=== PATIENT | female | born 1990 | race Caucasian/White ===

== ENCOUNTER 2023-05-25 11:59 | Inpatient (IN) | payer BC, SELFPAY ==
[2023-05-25] VITALS (31 sets, daily range): BP systolic 107–220; BP diastolic 74–131; PULSE 80–102; RESP 11–33; TEMP 36.5–37.2; O2SAT 95–100
--- NOTE | ~2023-05-25 | XR_ITS ---
XR chest 1V portable DATE: 05/25/2023 12:35 INDICATION: Right hand numbness. Hypertension. TECHNIQUE: PA chest COMPARISON: None FINDINGS: Transverse cardiothoracic ratio measures approximately 16/30, suggesting borderline or mild cardiomegaly. No pulmonary infiltrate or consolidation, pleural effusion or pulmonary vascular congestion or pneumo thorax. Mild aortic unfolding. Included skeletal structures are unremarkable. IMPRESSION: Borderline or mild cardiomegaly Reviewed, dictated and finalized at location L. [employer]
--- NOTE | ~2023-05-25 | CT_ITS ---
EXAMINATION: CT brain wo con DATE: 05/25/2023 12:29 INDICATION: Right hand numbness, tingling. Headaches. Hypertension. TECHNIQUE: Computed tomography (CT) of the head was performed without intravenous contrast. The mA wa s adjusted according to patient size. Iterative reconstruction technique was employed. Exam dose: 60 5.33 mGy-cm total exam DLP. COMPARISON: None FINDINGS: No intracranial mass lesion or hemorrhage or cerebrovascular accident. No midline shift or mass effect. Normal ventricular size. Normal reina-white matter differentiation. No subdural or epidural hematoma. No fracture or bone destruction of the cranial vault. The mastoid air cells and included paranasal si nuses are normally developed and aerated. IMPRESSION: Negative examination Reviewed, dictated and finalized at [facility]. Reviewed, dictated and finalized at location [facility]. [employer] IMPRESSION: Negative examination
--- NOTE | 2023-05-25 12:13 | ECG_ITS ---
Measurements Intervals [place] Rate: 92 P: 43 CT: 147 QRS: 46 QRSD: 94 T: 89 QT: 349 QTc: 432 Interpretive Statements SINUS RHYTHM NONSPECIFIC ST & T-WAVE ABNORMALITY ABNORMAL ECG NO PREVIOUS ECG AVAILABLE FOR COMPARISON Electronically Signed On 05-25-2023 14:00:43 DISPLAY CARD WRITER by Gallo Cornejo M.D.
[2023-05-25 12:15] LABS: Glucose Point of Care 92 mg/dl (65-105)
--- NOTE | 2023-05-25 14:17 | ED.GENADULT ---
HPI - General Adult General Chief complaint: Neuro Symptoms/Deficit Stated complaint: Rt hand numbness and tingling Time Seen by Provider: 05/25/23 13:18 History of Present Illness HPI narrative: Patient is a 33-year-old female who presents to the emergency department this afternoon due to an elevated blood pressure. Patient states that within the last week she noticed that her blood pressure has been, with her systolic sitting in the 200s. Patient has never been formally diagnosed with hypertension and what prompted her to track her blood pressure last week is that her right/arm was tingling and she has been having headaches a week. Patient was referred to our emergency department regarding her elevated blood pressure and has set up an appointment with a primary care physician which is scheduled in the near future. She is currently denying any headaches or focal weaknesses, and denies any numbness or tingling currently. The remainder of the history of present illness and review of systems negative unless stated otherwise in the HPI. There are no other modifying, alleviating, or precipitating factors at this time Related Data Allergies Allergy/AdvReac Type Severity Reaction Status Date / Time No Known Allergies Allergy Verified 05/25/23 14:43 Review of Systems Review of Systems: All systems are reviewed and are negative unless stated otherwise in the HPI. PMFSH Comments Admits to iron deficiency anemia, denies any significant surgical history, is significant family history, denies any tobacco use, alcohol abuse or illicit drug use. Exam Narrative: General: Alert, awake, afebrile, in no acute distress. HEENT: PERRL, no rhinorrhea, no post nasal drip, oropharynx clear. Neck: Trachea midline, no JVD, no lymphadenopathy. Cardiovascular: Regular rate and rhythm, no murmurs, rubs or gallops, no peripheral edema. Respiratory: Clear to auscultation bilaterally, no tachypnea, no wheezing, no rhonchi, no rubs, no respiratory distress. Abdomen: Soft, nontender, nondistended, no rebound, no guarding, no peritoneal signs. Musculoskeletal: No joint swelling or deformity, normal muscle tone. Skin: No rashes or petechia, no signs of infection. Psychiatric: Alert and oriented, normal behavior and judgment for situation. Neurological: Alert and oriented to person, place, and time. Follows all commands. No focal deficits, speech is clear and fluent. Course Vital Signs Vital signs: Vital Signs Temperature 97.7 F 05/25/23 12:07 Pulse Rate 102 H 05/25/23 12:07 Respiratory Rate 20 05/25/23 12:07 Blood Pressure 220/131 H 05/25/23 12:07 Pulse Oximetry 100 05/25/23 12:07 Oxygen Delivery Room Air 05/25/23 12:07 Temperature 97.7 F 05/25/23 12:07 Pulse Rate 87 05/25/23 15:02 Respiratory Rate 19 05/25/23 15:02 Blood Pressure 206/111 H 05/25/23 15:02 Pulse Oximetry 100 05/25/23 15:02 Oxygen Delivery Room Air 05/25/23 12:07 Medical Decision Making MDM Narrative Medical decision making narrative: The patient was evaluated by myself in the emergency department. History is obtained from patient who is an independent historian and physical exam was performed. External medical records were reviewed at this time. IV was established and pertinent tests were ordered. Patient was administered 20 mg of IV labetalol with no improvement of her blood pressure. At this time 40 mg of IV labetalol was administered, also, no improvement of her blood pressure. At this time, patient was placed on a Cardene drip for her hypertensive emergency. EKG was obtained which revealed sinus rhythm rate of 92 beats per minute. No ST changes, T wave inversions or evidence of acute ischemia. EKG was independently interpreted by me and is currently pending official cardiology read. Laboratory results obtained revealing hemoglobin of 7.1, otherwise unremarkable. Patient states that she does have a history of iron deficiency ane
[2023-05-25 14:25] LABS: Basophils Percent Auto 0.8 % (0.2-1.2); Eosinophils Absolute Auto 0.3 K/mm3 (0-0.3); Eosinophils Percent Auto 4.8 % (0-4.4); Hematocrit 27.2 % (37.0-47.0); Hemoglobin 7.1 g/dL (12.0-15.0); Immature Granulocyte Absolute 0.05 K/mm3 (0.00-0.031); Immature Platelet Fraction Pct 7.4 % (0.9-11.2); Lymphocytes Absolute Auto 1.79 K/mm3 (0.9-3.2); Lymphocytes Percent Auto 34.2 % (18.3-44.2); Mean Corpuscular HGB Conc 26.1 g/dl (32-36); Mean Corpuscular Hemoglobin 16.4 pg (26-34); Monocytes Absolute Auto 0.4 K/mm3 (0.1-0.6); Monocytes Percent Auto 6.7 % (2.6-8.5); Neutrophils Absolute Auto 2.8 K/mm3 (1.3-6.7); Neutrophils Percent Auto 52.5 % (45.5-73.1); Platelet Count Result 285 k/mm3 (150-375); Red Blood Count 4.32 M/mm3 (4.2-5.4); Red Cell Distribution Width 21.1 % (11.5-14.5); White Blood Count 5.2 K/mm3 (4.5-10.0)
[2023-05-25 14:32] LABS: Alanine Aminotransferase 19 U/L (6-35); Albumin Level 4.1 g/dL (3.5-5.1); Alkaline Phosphatase 64 U/L (38-126); Anion Gap 7 mmol/L (8-16); Aspartate Amino Transferase 27 U/L (14-36); Blood Urea Nitrogen 8 mg/dL (7-17); Calcium 8.5 mg/dL (8.4-10.2); Carbon Dioxide 28 mmol/L (22-30); Chloride 103 mmol/L (98-107); Estimated CRCL calculation 119 ml/min; Estimated Glomerular Filt Rate > 60; Glucose 90 mg/dL (65-110); Potassium 3.7 mmol/L (3.4-5.0); Sodium 138 mmol/L (137-145)
[2023-05-25 14:38] LABS: INR 1.1; Partial Thromboplastin Time 27.1 SECONDS (22.3-36.8); Prothrombin Time 14.7 Seconds (11.1-14.7)
[2023-05-25 14:39] LABS: Platelet Estimate Adequate (Adequate)
[2023-05-25 14:40] LABS: Anisocytosis 2+ (NORMAL); Hypochromasia 1+ (NORMAL); Microcytosis 2+ (NORMAL)
[2023-05-25 14:41] LABS: Target Cells 1+ (NORMAL)
[2023-05-25] MEDS: LABETALOL HCL INJ 100 MG/20 ML VIAL 20 MG IV PUSH (14:43)
[2023-05-25 14:44] LABS: Troponin I 0.019 ng/mL (0.000-0.034)
[2023-05-25 14:45] LABS: Schistocytes None Seen (NORMAL); Stomatocytes 1+ (NORMAL)
[2023-05-25] MEDS: LABETALOL HCL INJ 100 MG/20 ML VIAL 40 MG IV PUSH (14:51)
[2023-05-25] MEDS: niCARdipine 20 MG/200 ML 20 MG/200 ML BAG 50 MG IV CONT ×2 (15:55→20:50)
--- NOTE | 2023-05-25 17:45 | ADMGEN ---
This patient, Caryl Werner, was admitted to Intensive Care Unit-3. Patient/family oriented to hospital policies and general routines including ID bracelet, bed and alarms, visiting hours, pain management, procedures, bathroom and other care routines, personal items, smoking policy, room service/diet, and visiting hours. Information on how to activate the Rapid Response Team has been discussed. Patient/Family are encouraged to report perceived risks to care and to ask questions if they do not understand what they are told or what they should do.
[2023-05-25] MEDS: niCARdipine 20 MG/200 ML 20 MG/200 ML BAG 75 MG IV CONT ×2 (18:19→19:15)
[2023-05-25 18:32] LABS: Iron 56 ug/dL (37-170)
[2023-05-25 18:43] LABS: Percent Iron Saturation 11 % (20-50)
[2023-05-25 19:04] LABS: Ferritin 5.49 ng/mL (6.24-137)
[2023-05-25 19:41] LABS: Folic Acid 5.7 ng/mL (2.76->20)
--- NOTE | 2023-05-25 19:49 | PC.NURSE ---
Spoke with patient upon arrival. Pt stated she didn't want to stay overnight because she has Stuff to do. I encouraged patient to stay and informed her of the risks that comes with severe hypertension including, stroke, heart attack, and kidney disease, as well as the need to be stared on a home regiment so this event does not reccur. She agrees to stay but does not want to stay longer than tomorrow.
--- NOTE | 2023-05-25 20:33 | PM.IMHP ---
H&P: HPI History of Present Illness Date/Time: 05/25/23 16:30 Chief Complaint: High blood pressure. Narrative: This is a pleasant 33-year-old female with iron deficiency anemia attributed to heavy periods from uterine fibroids and hypertension (not currently on medication) who presented to the emergency department via private vehicle for evaluation of high blood pressure. The patient provides the following history. She reports daily, frontal headaches for little over 1 week which is unusual for her. Due to the headache she started to monitor her blood pressure as an outpatient and reports that it has been persistently over 200 systolic. She has occasional tingling in the right arm and hand as well. On occasion her vision appears blurry but that is not longstanding. She has been more short of breath with activity over a month or more reports they nagging, dry cough. She denies vertigo, facial droop, difficulty speaking and swallowing, focal weakness, chest pain, and edema. No fever, chills, sweats, cold, or flu symptoms. In the ED: Her blood pressure was as high as 220/131. A total of labetalol 60 mg was given without much benefit and she was started on nicardipine drip and has been admitted to the ICU in this setting. Labs were significant for a microcytic anemia with a hemoglobin of 7.1, hematocrit 27.2, MCV 63. She was previously prescribed iron but fell out of favor of taking that. She was previously on triamterene for her blood pressure but has not taken that for quite some time. Review of Systems Review of Systems: Twelve systems were reviewed. No fever, chills, or sweats. No recent cold or flu symptoms. No exertional chest pain. Occasional snoring and paroxysmal nocturnal dyspnea. Intermittent lower extremity edema which seems to improve by morning time. No calf pain. Appetite has been okay. Except as documented, all other systems were reviewed and are negative. [facility] Past Medical History Medical History (Updated 05/25/23 @ 20:55 by Joselin Anthony PA-C) Hypertension Iron deficiency anemia Uterine fibroid Surgical History Surgical History (Updated 05/25/23 @ 20:48 by Joselin Anthony PA-C) No history of previous surgery Family History Family History Grandparent Breast cancer Grandparent Colon cancer Sibling Cerebrovascular accident Grandparent Hypertension Mother Fibroids Social History Social History (Updated 05/25/23 @ 20:48 by Joselin Anthony PA-C) Social History: Surrogate medical decision maker: Osmin Garcia, father. Code status: Full code. Smoking status: Never smoker Alcohol intake: former Substance use: never Do You Feel Safe in your Home?: Yes Lack of Transportation: No Lack of Food: Never True Current Housing: I Have Housing Concerned About Future Housing: No Difficulty Paying Gas/Electric Bills: No Difficulty Paying for Meds: No Currently Unemployed: No Education: Decline to Answer Difficulty w/ Childcare or Family Care: Decline to Answer Additional living arrangements comments: Lives in [place]. 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 Spiritual care concerns: No Meds Home Medications and Allergies Home Medications Medication Instructions Recorded Confirmed Type No Home Medications 05/25/23 05/25/23 History Allergies Allergy/AdvReac Type Severity Reaction Status Date / Time No Known Allergies Allergy Verified 05/25/23 14:43 Vital Signs Vital Signs - 24 hr 05/25/23 12:07 05/25/23 13:16 05/25/23 13:27 Temperature 97.7 F Pulse Rate 102 H 84 82 Respiratory Rate 20 22 H 26 H Blood Pressure 220/131 H Pulse Oximetry 100 99 Oxygen Delivery Room Air 05/25/23 13:30 05/25/23 13:31 05/25/23 13:45 Temperature Pulse Rate 84 86 91 Respiratory Rate 21 H 25 H 25 H Blood Pressure 208/98 H Pulse Oximetry 98 98 Oxygen Delivery
--- NOTE | 2023-05-25 22:12 | PC.NURSE ---
pt called and said she was wanting to leave [facility]. I further reinforced the risks she was taking as mentioned in previous note. She states that she understands all the risks and will be seeing her primary next week to address all the issues. Spoke with PA who says she will come talk to patient. Awaiting arrival.
--- NOTE | 2023-05-25 23:01 | PC.NURSE ---
Pt stated she was ready to leave [facility] and provider was taking too long. Signed papers, removed IV and escorted out of unit
--- NOTE | 2023-05-26 14:37 | P.PNCROSS_ITS ---
Event Note Event Note Event Note: 05/25/2023 22:15 I received a call from the patient's nurse indicating that she wished to leave against medical advice. Nurse discussed the risks of leaving with the patient (stroke, heart attack, permanent debility, and even ) and he was not able to convince her to stay. I asked the patient to wait for me to come to speak with her however was with a sick patient at the time and I was not able to get there within a reasonable time frame for the patient and she left against medical advice without speaking with me. She told the nurse that she had follow- up with her primary care provider next week. She was given reasons to return. During the time I spent with the patient earlier in the day, there were no identifiable factors to suggest that she had altered decision making capacity and she had normal reasoning abilities.
== END 2023-05-25 23:00 | disposition left against medical advice (07) | DRG 305 ==
LOC: ANHED 15:21 → ANHICU 17:12
PROVIDERS: Admitting Provider Internal Medicine; Emergency Provider Emergency Medicine; Visit Provider Physician Assistant
DX: I16.0 Hypertensive urgency (principal); Z68.42 Body mass index [BMI] 45.0-49.9, adult; D50.9 Iron deficiency anemia, unspecified; I10 Essential (primary) hypertension; D25.9 Leiomyoma of uterus, unspecified; E66.01 Morbid (severe) obesity due to excess calories; R20.2 Paresthesia of skin; R29.818 Other symptoms and signs involving the nervous system
CPT/HCPCS: 36415; 70450; 71045; 80053; 81025; 82607; 82728; 82746; 82948; 83540; 83550; 84484; 85025; 85055; 85610; 85730; 93005; 96374; 96375; 99285; J2404

== ENCOUNTER 2023-11-09 01:36 | Emergency (ER) | payer OTHER, SELFPAY ==
--- NOTE | ~2023-11-09 | XR_ITS ---
Portable chest x-ray Comparison: 05/25/2023 Clinical History: Dyspnea Findings: Lungs are clear, without focal consolidation or pleural effusion. Cardiomediastinal silho uette is stable. Bones and soft tissues are unremarkable. Impression: Clear lungs. Stable cardiomegaly. Reviewed, dictated and finalized at location . Impression: Clear lungs. Stable cardiomegaly.
[2023-11-09 01:39] VITALS: BP 230/100; PULSE 116; RESP 28; TEMP 36.8; O2SAT 100
[2023-11-09 02:27] VITALS: PULSE 106; RESP 27; O2SAT 93
[2023-11-09 03:48] VITALS: BP 201/117; PULSE 110; RESP 28; O2SAT 98
--- NOTE | 2023-11-09 03:51 | ECG_ITS ---
Test Date: 2023-11-09 04:17:55 Measurements Intervals [place] Rate: 106 P: 49 DE: 164 QRS: 12 QRSD: 93 T: 118 QT: 341 QTc: 453 Interpretive Statements SINUS TACHYCARDIA NONSPECIFIC T-WAVE ABNORMALITY BORDERLINEL ECG No previous ECG available for comparison Electronically Signed On 11-10-2023 10:50:47 CDT by Mumtaz Thomas M.D.
--- NOTE | 2023-11-09 03:54 | ED.GENADULT ---
HPI - General Adult General Chief complaint: Unspecified Stated complaint: vomiting Time Seen by Provider: 11/09/23 02:24 Source: patient Limitations: no limitations History of Present Illness HPI narrative: Patient is a 33-year-old female presents to the emergency department complaining of inhalation of bleach. Patient notes that she was cleaning and spilled household bleach when she went to go clean up the spill bleach she inhaled a lot of it and subsequently developed nausea and vomiting and this was at 9:40 p.m.. Patient notes she has had multiple episodes of nonbloody nonbilious emesis that has now turned to retching. Patient notes around 11:00 p.m. she started having difficulty breathing but has been constant and unchanged since. Patient denies history of asthma. Patient states she was in her normal state health preceding illness. Patient denies chest pain, abdominal pain, rash, sore throat. Related Data Allergies Allergy/AdvReac Type Severity Reaction Status Date / Time No Known Allergies Allergy Verified 05/25/23 14:43 Review of Systems Review of Systems: A 10 system review of systems was completed on the patient and is negative except for what is stated in the HPI. Nursing and ancillary documentation was reviewed. [facility] Past Medical History Medical History (Updated 11/09/23 @ 06:44 by Song Mcneill DO) Hypertension Iron deficiency anemia Uterine fibroid Surgical History Surgical History (Updated 05/25/23 @ 20:48 by Joselin Anthony PA-C) No history of previous surgery Family History Family History Grandparent Breast cancer Grandparent Colon cancer Sibling Cerebrovascular accident Grandparent Hypertension Mother Fibroids Social History Social History (Updated 05/25/23 @ 20:48 by Joselin Anthony PA-C) Social History: Surrogate medical decision maker: Osmin Garcia, father. Code status: Full code. Smoking status: Never smoker Alcohol intake: former Substance use: never Do You Feel Safe in your Home?: Yes Lack of Transportation: No Lack of Food: Never True Current Housing: I Have Housing Concerned About Future Housing: No Difficulty Paying Gas/Electric Bills: No Difficulty Paying for Meds: No Currently Unemployed: No Education: Decline to Answer Difficulty w/ Childcare or Family Care: Decline to Answer Additional living arrangements comments: Lives in [place]. 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 Spiritual care concerns: No Comments At time of signature, I have reviewed and agree with nursing past medical, surgical, social and family history unless otherwise noted. Please see the nursing chart for further information. There is no relevant family history pertinent to the presenting complaint. Exam Narrative: CONST: No acute distress. Well nourished. Obese. HENMT: Head is normocephalic and atraumatic. Moist mucous membranes. No posterior oropharynx erythema. No oral lesions. No angioedema. EYES: No scleral icterus. No conjunctival injection or pallor. PERRL. NECK: No meningeal signs. No crepitus. RESP: Speaking in phrases. Tachypnea. Mildly prolonged expiratory phase with scant end-expiratory wheeze. Diminished breath sounds diffusely. CARDIO: Tachycardic rate. Regular rhythm. 2+ DP and radial pulses bilaterally. GI: Nondistended. No tenderness to palpation. Soft. : No CVA tenderness to palpation. SKIN: No rashes or lesions noted on exposed skin. NEURO: Oriented x3. Moves all extremities. EXTREM/MSK/BACK: No pedal edema. PSYCH: Normal affect. Course Vital Signs Vital signs: Vital Signs Temperature 98.2 F 11/09/23 01:39 Pulse Rate 116 H 11/09/23 01:39 Respiratory Rate 28 H 11/09/23 01:39 Blood Pressure 230/100 H 11/09/23 01:39 Pulse Oximetry 100 11/09/23 01:39 Oxygen Delivery Room Air 11/09/23 01:39 Temp
[2023-11-09 04:05] VITALS: PULSE 107; RESP 28
[2023-11-09] MEDS: IPRATROPIUM 0.5 MG/ALBUTEROL SULFATE 2.5 MG AMPUL.NEB 3 ML INHALATION ×3 (04:08)
--- NOTE | 2023-11-09 04:30 | PC.NURSE ---
ON 11/08/2020 AT 0429 [facility] CONTACTED BY THIS RN, SPOKE WITH FLORECITA AND THIS CALL WAS PASSED OVER TO EDP; DR. LANDEROS.
[2023-11-09] MEDS: ONDANSETRON INJ 4 MG/2 ML VIAL IV PUSH (04:34)
[2023-11-09] MEDS: methylPREDNISolone SOD SUCC 125 MG VIAL IV PUSH (04:35)
[2023-11-09 04:40] LABS: Basophils Absolute Auto 0.1 K/mm3 (0.0-0.1); Basophils Percent Auto 0.6 % (0.2-1.2); Eosinophils Absolute Auto 0.1 K/mm3 (0-0.3); Eosinophils Percent Auto 1.4 % (0-4.4); Hematocrit 31.6 % (37.0-47.0); Hemoglobin 8.6 g/dL (12.0-15.0); Immature Granulocyte Absolute 0.08 K/mm3 (0.00-0.031); Immature Granulocyte Percent A 0.8 % (0-0.5); Immature Platelet Fraction Pct 6.8 % (0.9-11.2); Lymphocytes Absolute Auto 1.36 K/mm3 (0.9-3.2); Lymphocytes Percent Auto 14.2 % (18.3-44.2); Mean Corpuscular HGB Conc 27.2 g/dl (32-36); Mean Corpuscular Hemoglobin 17.3 pg (26-34); Mean Corpuscular Volume 63.7 fl (80-100); Monocytes Absolute Auto 0.5 K/mm3 (0.1-0.6); Monocytes Percent Auto 5.5 % (2.6-8.5); Neutrophils Absolute Auto 7.4 K/mm3 (1.3-6.7); Neutrophils Percent Auto 77.5 % (45.5-73.1); Nucleated Red Blood Cells Perc 0.3 % (0.0-0.2); Platelet Count Result 305 k/mm3 (150-375); Red Blood Count 4.96 M/mm3 (4.2-5.4); Red Cell Distribution Width 23.1 % (11.5-14.5); White Blood Count 9.6 K/mm3 (4.5-10.0)
--- NOTE | 2023-11-09 04:41 | PC.NURSE ---
This RN spoke with Parvin SWEET from poison control at [id number]. Parvin states she would like us to give pt PO fluids such as ice chips or cold juice to help with throat irritation. Along with ativan to help with pt nerves and work of breathing.
[2023-11-09] MEDS: LORazepam INJ (*CRX) 2 MG/ML VIAL 0.5 MG IV PUSH (04:45)
[2023-11-09 04:48] LABS: Magnesium 1.7 mg/dL (1.6-2.3)
[2023-11-09 04:49] LABS: Alanine Aminotransferase 24 U/L (6-35); Alkaline Phosphatase 66 U/L (38-126); Anion Gap 14 mmol/L (4-12); Aspartate Amino Transferase 27 U/L (14-36); Bilirubin,Total 0.9 mg/dL (0.2-1.3); Blood Urea Nitrogen 14 mg/dL (7-17); Calcium 9.1 mg/dL (8.4-10.2); Carbon Dioxide 24 mmol/L (22-30); Chloride 101 mmol/L (98-107); Estimated CRCL calculation 109 ml/min; Estimated Glomerular Filt Rate > 60; Glucose 147 mg/dL (65-110); Potassium 3.7 mmol/L (3.4-5.0); Sodium 139 mmol/L (137-145)
[2023-11-09 05:00] VITALS: PULSE 106; RESP 29
[2023-11-09 05:01] LABS: Anisocytosis 1+; Hypochromasia 2+; Large Platelets Present; Platelet Estimate Adequate (Adequate)
[2023-11-09 05:02] LABS: Macrocytosis 1+ (NORMAL); Ovalocytes 1+; Schistocytes None Seen; Stomatocytes 1+
[2023-11-09 05:33] LABS: NT Pro B Type Natriuretic Pept 150 pg/mL (19.9-100); Troponin I < 0.012 ng/mL (0.000-0.034)
[2023-11-09 06:24] VITALS: BP 194/90; PULSE 104; RESP 31; O2SAT 93
== END 2023-11-09 06:51 | disposition home or self-care (01) ==
PROVIDERS: Emergency Provider Student in an Organized Health Care Education/Training Program
DX: R06.00 Dyspnea, unspecified (principal); T59.91XA Toxic effect of unspecified gases, fumes and vapors, accidental (unintentional), initial encounter; I10 Essential (primary) hypertension
CPT/HCPCS: 36415; 71045; 80053; 83735; 83880; 84484; 85025; 85055; 93005; 94640; 96374; 96375; 99284; J2060; J2405; J2919